=== PATIENT | male | born 1980 | race African-American/Black ===

== ENCOUNTER 2019-11-15 04:36 | Emergency (ER) | payer SELFPAY ==
[2019-11-15] MEDS ORDERED: Lidocaine 1% (PF) 30 ML VIAL ONE (05:09)
[2019-11-15] MEDS ORDERED: PHENYLEPHRINE-NS 100 MCG/ML 10 ML SYRINGE FS SCH (05:30)
== END 2019-11-15 06:18 | disposition home or self-care (01) ==
LOC: ERS 04:36
DX: N48.30 Priapism, unspecified (principal); F41.9 Anxiety disorder, unspecified; Z87.891 Personal history of nicotine dependence; Z79.899 Other long term (current) drug therapy
CPT/HCPCS: 99283; J2001

== ENCOUNTER 2019-12-02 18:25 | Emergency (ER) | payer SELFPAY ==
[~2019-12-02 18:25] MED LIST: Iopamidol 370 76% 100 ML VIAL ONE
[2019-12-02] MEDS ORDERED: Acetaminophen 500 MG TAB ONE (18:49)
[2019-12-02 19:15] LABS: #Basophils 0.1 thou/uL (0.0-0.2); #Eosinphils 0.1 thou/uL (0.0-0.7); #Lymphocytes 1.9 thou/uL (1.20-3.40); #Neutrophils 14.5 thou/uL (1.40-6.50); %Basophils 0.4 % (0.0-1.0); %Eosinophils 0.7 % (0.0-10.0); %Lymphocytes 10.3 % (21.0-51.0); %Monocytes 10.8 % (0.0-10.0); %Neutrophils 77.7 % (42.0-75.0); Hemoglobin 13.4 g/dL (14.0-18.0); Mean Corpuscular Hemoglobin 32.5 pg (27.0-31.0); Mean Corpuscular Volume 95.7 fL (78.0-98.0); Mean Platelet Volume 6.2 fL (7.4-10.4); Platelet Count 626 thou/uL (130-400); Red Blood Cell (RBC) Count 4.11 mill/uL (4.70-6.10); White Blood Cell (WBC) Count 18.7 thou/uL (4.8-10.8)
[2019-12-02 19:20] LABS: INR-International Normal Ratio 1.1; PTT 28.7 sec (22.9-36.1)
[2019-12-02 19:36] LABS: ALT (SGPT) 27 U/L (8-55); AST (SGOT) 15 U/L (5-34); Albumin 3.5 g/dL (3.5-5.0); Alkaline Phosphatase 81 U/L (40-110); Anion Gap 12 mmol/L (10-20); BUN (Urea Nitrogen) 8 mg/dL (8.9-20.6); Bilirubin, Total 0.5 mg/dL (0.2-1.2); Calc. Creatinine Clearance 0 mL/min (70-130); Calcium 9.3 mg/dL (7.8-10.44); Carbon Dioxide 26 mmol/L (22-29); Chloride 101 mmol/L (98-107); Estimated GFR-MDRD Greater than 90; Globulin 4.9 g/dL (2.4-3.5); Glucose 140 mg/dL (70-105); Potassium 3.5 mmol/L (3.5-5.1); Protein, Total 8.4 g/dL (6.0-8.3); Sodium 135 mmol/L (136-145)
--- NOTE | 2019-12-02 19:40 | CT ---
EXAM: CT Pelvis W Con DATE: 12/02/2019 12:00 AM INDICATION: Penile pain and priapism COMPARISON: None. FINDING: There is prominent soft tissue swelling involving the dorsal shaft of the erect penis. Ther e are fat-containing bilateral inguinal hernias. Visualized intrapelvic contents reveal no acute abnormality. No enlarged lymph nodes are evident. No acute osseous abnormality is demonstrated. IMPRESSION:Prominent soft tissue swelling involving the dorsal shaft of an erect penis
--- NOTE | 2019-12-02 19:41 | RAD ---
Chest AP view INDICATION: Fever and priapism COMPARISON: None FINDINGS: Lungs: The lungs are clear Cardiac silhouette: The cardiomediastinal silhouette appears within normal limits. Pulmonary vasculature: Normal Pleural spaces: No pleural effusion or pneumothorax is demonstrated. Upper abdomen: No abnormality seen. Osseous structures: No acute osseous abnormality. Additional findings: None. IMPRESSION: No acute cardiopulmonary abnormality.
[2019-12-02 21:18] LABS: Bilirubin Negative (Negative); Blood, Urine Negative (Negative); Clarity Clear (Clear); Glucose, Urine (Dipstick) Normal (Negative); Ketone, Urine Negative (Negative); Leukocyte Negative Leu/uL (Negative); Nitrite Negative (Negative); Protein, Urine (Dipstick) 10 mg/dL (Neg-Trace); Urobilinogen Normal mg/dL (Less than 2); pH, Urine 5.5 (5.0-9.0)
[2019-12-02 21:20] LABS: Specific Gravity, Urine 1.061 (1.002-1.036)
== END 2019-12-02 21:55 | disposition home or self-care (01) ==
LOC: ERS 18:25
DX: S30.21XA Contusion of penis, initial encounter (principal); D72.829 Elevated white blood cell count, unspecified; F41.9 Anxiety disorder, unspecified; Z87.891 Personal history of nicotine dependence; Z79.899 Other long term (current) drug therapy; X58.XXXA Exposure to other specified factors, initial encounter
CPT/HCPCS: 36415; 71045; 72193; 80053; 81003; 83605; 85025; 85610; 85730; 86850; 86900; 86901; 87040; 96360; 96361; Q9967

== ENCOUNTER 2019-12-05 08:49 | Inpatient (IN) | payer MEDICARE, SELFPAY ==
[2019-12-05 09:49] LABS: Hemoglobin 13.9 g/dL (14.0-18.0); Mean Corpuscular HGB CONC 35.7 g/dL (32.0-36.0); Mean Corpuscular Hemoglobin 34.2 pg (27.0-31.0); Mean Corpuscular Volume 95.7 fL (78.0-98.0); Mean Platelet Volume 6.1 fL (7.4-10.4); Platelet Count 669 thou/uL (130-400); RBC Distribution Width 12.1 % (11.5-14.5); Red Blood Cell (RBC) Count 4.07 mill/uL (4.70-6.10); White Blood Cell (WBC) Count 15.7 thou/uL (4.8-10.8)
[2019-12-05 10:03] LABS: ALT (SGPT) 36 U/L (8-55); AST (SGOT) 22 U/L (5-34); Acetaminophen Less than 6.0 mcg/mL (10.0-30.0); Albumin 3.5 g/dL (3.5-5.0); Alcohol Less than 10 mg/dL (Less than 10); Alkaline Phosphatase 90 U/L (40-110); Anion Gap 14 mmol/L (10-20); BUN (Urea Nitrogen) 11 mg/dL (8.9-20.6); Bilirubin, Total 0.3 mg/dL (0.2-1.2); CK (CPK) 407 U/L (30-200); Calc. Creatinine Clearance 0 mL/min (70-130); Calcium 9.4 mg/dL (7.8-10.44); Carbon Dioxide 25 mmol/L (22-29); Chloride 104 mmol/L (98-107); Estimated GFR-MDRD Greater than 90; Globulin 5.1 g/dL (2.4-3.5); Glucose 105 mg/dL (70-105); Lipase 10 U/L (8-78); Potassium 4.1 mmol/L (3.5-5.1); Protein, Total 8.6 g/dL (6.0-8.3); Salicylate Less than 8.0 mg/dL (15.0-30.0); Sodium 139 mmol/L (136-145)
[2019-12-05 10:11] LABS: Eosinophils 2 % (0-10); Lymphocytes 14 % (21-51); MDiff Complete? YES; Monocytes 10 % (0-10); Neutrophil 72 % (42-75); Platelet Morphology Comment Appears Increased; Reactive Lymphocytes 1 % (0-10)
[2019-12-05] MEDS ORDERED: Cefepime 2 GM VIAL ONE (10:15)
[2019-12-05] MEDS ORDERED: Vancomycin 1 GM/200 ML BAG ONE (10:15)
[2019-12-05] MEDS ORDERED: Fentanyl 100 MCG/2 ML VIAL ONE (10:51)
[2019-12-05] MEDS ORDERED: Ondansetron ODT 4 MG TAB PO PRN (11:13)
[2019-12-05 11:38] LABS: Bilirubin Negative (Negative); Blood, Urine Negative (Negative); Clarity Clear (Clear); Glucose, Urine (Dipstick) Normal (Negative); Ketone, Urine Negative (Negative); Leukocyte Negative Leu/uL (Negative); Nitrite Negative (Negative); Protein, Urine (Dipstick) Negative (Neg-Trace); Specific Gravity, Urine 1.019 (1.002-1.036); Urobilinogen 6 mg/dL (Less than 2); pH, Urine 6.5 (5.0-9.0)
[2019-12-05 12:00] LABS: Amphetamine Not Detected (NotDetected); Barbiturates Screen Not Detected (NotDetected); Benzodiazepine Screen Not Detected (NotDetected); Cocaine Metabolite Screen Not Detected (NotDetected); Medtox Control Line Valid? VALID (VALID); Medtox Reader # READER 1; Methadone Not Detected (NotDetected); Methamphetamine Not Detected (NotDetected); Opiate Screen Not Detected (NotDetected); Oxycodone Screen Not Detected (NotDetected); Phencyclidine (PCP) Not Detected (NotDetected); THC/Cannabinoid Screen Not Detected (NotDetected); Tricyclic Screen Not Detected (NotDetected)
[2019-12-05] MEDS: traMADol HCl 50 MG TAB PO PRN ×2 (13:56→21:14)
[2019-12-05] MEDS ORDERED: Sodium Chloride 0.9% 1,000 ML IV SCH (14:00)
[2019-12-05 14:34] VITALS: BMI 30.8
--- NOTE | 2019-12-05 15:37 | CON ---
DATE OF CONSULTATION: 12/05/2019 REASON FOR CONSULTATION: 1. Priapism. 2. Bleeding from the right corporal body. HISTORY OF PRESENT ILLNESS: Mr. Ignacio Morales, (also listed as Obi on [facility] system) is a 39-year-old male, who is disabled secondary to schizophrenia. He is followed by [facility] for that. He has very poor recall of the timeline of events and does not know who his physician or other caretakers are. The patient is oriented to self and place at the present time. Mr. Morales reports that he has had several priapism events in the past. He did rule out previously as a sickle cell patient at [facility], was seen on 11/18/[address] Ortega for priapism event. The patient was evaluated at that time. He had a corporal aspiration and had over 24 hours worth of priapism at that point, he had very thick dark colored blood at that time. Arterial blood gas at that time suggested this was a venous type obstruction resulting in priapism. The patient presented to the [facility] Emergency Department today and was evaluated by Dr. Christiano Marroquin, who notes an open area on the right corporal shaft, which is the area of the patient's previous corporal aspiration, which was performed initially with a 14-gauge Angiocath. The blood gas obtained at that point in time showed venous constituents as opposed to arterial type priapism. The patient's corporal bodies would not completely go to flaccidity due to the long duration and thick clot nature of the patient's priapism. The patient has been subsequently back to the [facility] Emergency Department here on [place] on two occasions, was evaluated previously on 12/03/2019 with an elevated white count and fever of 101.9. The patient left against medical advice at that point and was discharged on antibiotics. He returns to the emergency department today with a sore on the side of his penis in the site of the previous aspiration and there is bleeding from the opening. He has had ongoing issues with the priapism, which have been a continuous issue for him. As noted earlier, he is a very poor historian. Does not have any recall of the dates of the current events nor of past events involving priapism. The patient reports that he attempted masturbation to make the penis go down. This did not seem to help him. He developed bleeding from the right corporal shaft again and then he presented to the emergency department. PAST MEDICAL HISTORY: 1. Schizophrenia. 2. Recurrent episodes of priapism. PAST SURGICAL HISTORY: The patient admits to corporal irrigation, one performed on 11/18/2019, via the right corporal body. HOME MEDICATIONS: Risperdal. ALLERGIES: NO KNOWN DRUG ALLERGIES. SOCIAL HISTORY: The patient is unemployed secondary to schizophrenia. PHYSICAL EXAMINATION: VITAL SIGNS: Please see ER record. CONSTITUTIONAL: The patient does not appear to be grossly uncomfortable or in distress at the present time. The patient is evaluated supine in the emergency department [facility]. HEAD, EARS, EYES, NOSE, AND THROAT: Extraocular movements are intact. Sclerae are anicteric. Oropharynx is clear. There are no head deformities, no contusions. NECK: Supple. There is no bruit heard on auscultation. There is no JVD. PULMONARY: Lungs are clear to auscultation bilaterally. CARDIAC: There is a borderline tachycardic rate, it is regular. There are no murmurs heard. ABDOMEN: Soft and nontender. There is no evidence of skin lesions or other abnormalities. There is no crepitance. GENITOURINARY: Testes are found present bilaterally in the scrotum. They are smooth, anodular, nontender with no evidence of cellulitis or necrotizing fasciitis. There is no evidence of Dulce gangrene. Phallus is found in a Coban wrap with 4x[address] There is some blood staining on that. Close examination of corporal body finds relatively large defect measuring about possibly from having been picked that or some other type of injury. This could also be the result of an infection. There is no odor to the lesion to suggest Dulce gangrene. Possible, based on the presentation that this would be MRSA type lesion. I did not find any purulence in the wound at all. There is gross blood visible extruding from the wound site. The phallus itself is semierect, there is increase in erection and decreased during course of examination. The wound site was redressed with fresh 4x4 dressings and Coban. It was assessed to be adequate to decrease bleeding from the site without resulting in strangulation. LABORATORY STUDIES: White count is 15,700, hemoglobin 13.9, hematocrit 38.9, platelet count is 669. Electrolytes are completely within normal limits. Creatinine is 0.92. ASSESSMENT AND PLAN: This is an interesting story of a patient with schizophrenia and a recent corporal aspiration through a 14-gauge Angiocath. The patient has had priapism event going on for several days. He did present once since that on 12/03/2019, with what appeared to be an infection, elevated white count, and fever. He was sent home on antibiotic coverage. Returns here today with a white count which is reduced from what it was the other day, but with ongoing bleeding from the right aspect of the corporal body. He has fluctuating or stuttering type of priapism, apparently at present time, close examination of the patient finds he has a wound on the right corporal body. 1. Wound on the right corporal body, highly suspicious for MRSA type skin infection. Recommend appropriate coverage for that. This would be vancomycin intravenously and at appropriate interval either Bactrim plus rifampin or Zyvox as an outpatient. No cultures have been obtained. The patient is currently on antibiotic coverage. I am dubious that culture here will reveal presence of actual MRSA, although a swab may be useful. 2. Schizophrenia. The patient should be continued on his current schizophrenia medications. 3. Tachycardia and febrile presentation consistent with at least a SIRS type syndrome. Appropriate in-hospital hydration and fluid management as well as antipyretics indicated. Job ID: [id number]
--- NOTE | 2019-12-05 15:46 | HP ---
CHIEF COMPLAINT: Penile bleeding. HISTORY OF PRESENT ILLNESS: A 39-year-old male with a history of schizophrenia, presenting with bleeding secondary to priapism. He had several episodes of penile bleed in the past. Recently, on November 14, he had an episode and followed with urologist, Dr. Ortega. Last event was 3 days ago, and roughly about 60 mL of blood drained when he visited ER. The patient came again today because of the ongoing issues, has semi erectile penis and erythema surrounding the skin. He has some dark red blood on the left shaft side. He mentioned that he did masturbate to relieve, but however, the symptoms did not resolve. In the ER, they did a CT scan on the three days prior, and it showed prominent soft tissue swelling involving the dorsal shaft of the erectile penis. Today, his UA looked clear. Chest x-ray clear. ER physician contacted Dr. Delta Fernandez, urologist, because of uncertainty on the nature of the infection. Dr. Fernandez would likely see him. Patient will be brought in for a brief IV antibiotics course and for further urology workup. REVIEW OF SYSTEMS: Denies any recent productive cough or sick exposures. Denies chest pain. Denies dysuria. No lower quadrant discomfort. Denies any burning sensation when he voids. The rest of the 13-point review of systems reviewed, and others are negative. ALLERGIES: HE HAS NO KNOWN DRUG ALLERGY. PAST MEDICAL HISTORY: Schizophrenia. He takes risperidone 4 mg daily. HOME MEDICATIONS: Risperidone 4 mg daily. SOCIAL HISTORY: He smokes a pack a day. No alcohol use. FAMILY HISTORY: The parents' family history asked and they are negative. PHYSICAL EXAMINATION: VITAL SIGNS: Temperature 98.4, pulse 94, blood pressure 132/82, saturating 98% on room air. GENERAL: The patient is alert, oriented, not in any acute distress. CARDIOVASCULAR: Regular rate and rhythm without murmurs, rubs, or gallops. LUNGS: Clear to auscultation bilaterally without wheezing, rales, or rhonchi. ABDOMEN: Soft, nontender, and nondistended. Good bowel sounds. EXTREMITIES: Without pitting edema. He has a semi-erectile penis and mild erythema surrounding the shaft, but no flocculence or other abnormality noted. LABORATORY DATA: His UA is clear. Urine drug screen is negative. Chemistry panel also negative. CBC with WBC of 15.7, hemoglobin 13.9, and platelets 669. Chest x-ray negative. UA is negative. IMPRESSION AND PLAN: 1. This is a 39-year-old male presenting with acute episode of penile bleed with recurrent history. The patient is not presenting with sepsis like picture. He has only elevated white count and penile bleed. He is normotensive, and his oxygen saturations are good, and pulse is 94. No tachypnea. There is some mild cellulitis surrounding the penile shaft. We will cover with empiric antibiotic preceded by blood culture. Because of the patient's medical condition, it is unsure that this is just a benign priapism related bleed versus any underlying infectious etiology. We will sort that out. Dr. Fernandez, urologist, will likely see him today. 2. The patient also has mild rhabdomyolysis, probably reflective of acute stress. We will hydrate him and then follow with a CK level. 3. Schizophrenia. Continue with his risperidone. 4. Tobacco abuse. Counseling when able. Nicotine patch daily. 5. History of marijuana abuse as above. 6. Full code. Job ID: [id number] [facility]
[2019-12-05] MEDS: Vancomycin HCl 1.25 GM in Sodium Chloride 0.9% 250 ML 250 ML IVPB SCH (18:11)
[2019-12-05] MEDS: Cefepime 1 GM in Sodium Chloride 0.9% 100 ML IVPB SCH (21:05)
[2019-12-05] MEDS: Acetaminophen 325 MG TAB PO PRN (21:13)
[2019-12-05] MEDS ORDERED: Nicotine 14 MG PATCH TD PRN (22:05)
[2019-12-06] MEDS: Vancomycin HCl 1.25 GM in Sodium Chloride 0.9% 250 ML 250 ML IVPB SCH ×3 (01:50→17:27)
[2019-12-06] MEDS: Acetaminophen 325 MG TAB PO PRN (02:51)
[2019-12-06] MEDS: traMADol HCl 50 MG TAB PO PRN ×2 (02:51→17:26)
[2019-12-06 05:33] LABS: #Eosinphils 0.4 thou/uL (0.0-0.7); #Lymphocytes 2.2 thou/uL (1.20-3.40); #Monocytes 1.4 thou/uL (0.11-0.59); #Neutrophils 7.2 thou/uL (1.40-6.50); %Basophils 0.4 % (0.0-1.0); %Eosinophils 3.6 % (0.0-10.0); %Lymphocytes 19.9 % (21.0-51.0); %Monocytes 12.1 % (0.0-10.0); %Neutrophils 64.1 % (42.0-75.0); Hemoglobin 11.4 g/dL (14.0-18.0); Mean Corpuscular Hemoglobin 32.9 pg (27.0-31.0); Mean Corpuscular Volume 96.7 fL (78.0-98.0); Platelet Count 565 thou/uL (130-400); Red Blood Cell (RBC) Count 3.47 mill/uL (4.70-6.10); White Blood Cell (WBC) Count 11.2 thou/uL (4.8-10.8)
[2019-12-06 05:50] LABS: Anion Gap 9 mmol/L (10-20); BUN (Urea Nitrogen) 10 mg/dL (8.9-20.6); CK (CPK) 362 U/L (30-200); Calc. Creatinine Clearance 153 mL/min (70-130); Calcium 8.7 mg/dL (7.8-10.44); Carbon Dioxide 27 mmol/L (22-29); Chloride 107 mmol/L (98-107); Estimated GFR-MDRD Greater than 90; Glucose 98 mg/dL (70-105); Potassium 4.2 mmol/L (3.5-5.1); Sodium 139 mmol/L (136-145)
[2019-12-06] MEDS: risperiDONE 1 MG TAB PO SCH (08:11)
[2019-12-06] MEDS: Cefepime 1 GM in Sodium Chloride 0.9% 100 ML IVPB SCH ×2 (09:10→21:22)
--- NOTE | 2019-12-06 14:40 | PDOC.HOSPP ---
- Subjective Encounter Date: 12/06/19 Encounter Time: 11:00 Subjective: seen this am, he is doing well, penile area in dressing, says he did not notice any bleed. hgb at 11.4 and dropped from 13.9 of y'day. blood culx negative. no swab done on the penile shaft and the utility of that mehdi may be less. but still we do as we covered already for skin infections w.. vanc. plan for bactrim + rifambin x 14 days, if mehdi cont'd to be neg and he is afebrile. wbcs trending down. - Objective Vital Signs & Weight: Vital Signs (12 hours) Temp Pulse Resp BP BP Pulse Ox 12/06/19 11:44 98.2 F 89 18 114/69 97 12/06/19 08:00 97.9 F 86 18 114/73 96 12/06/19 07:23 97.9 F 86 18 114/73 96 12/06/19 04:15 97.9 F 80 18 111/69 97 Weight Weight 202 lb 13.204 oz I&O: 12/05/19 12/06/19 12/07/19 06:59 06:59 06:59 Intake Total 4460 Balance 4460 Result Diagrams: 12/06/19 05:16 12/06/19 05:16 Hospitalist ROS - Medication Medications: Active Medications Generic Name Dose Route Start Last Admin Trade Name Freq PRN Reason Stop Dose Admin Acetaminophen 650 mg 12/05/19 11:13 12/06/19 02:51 Tylenol PO 650 mg Q4H PRN Administration Headache/Fever/Mild Pain (1-3) Cefepime HCl 1 gm/ Sodium 100 mls @ 200 mls/hr 12/05/19 22:00 12/06/19 09:10 Chloride IVPB 100 mls 1000,2200 MARILU Administration Vancomycin HCl 1.25 gm/ Sodium 250 mls @ 166.667 mls/hr 12/05/19 18:00 09:52 Chloride IVPB 250 mls 0200,1000,1800 MARILU Administration Risperidone 4 mg 12/06/19 09:00 12/06/19 08:11 Risperidone PO 4 mg DAILY MARILU Administration Tramadol HCl 50 mg 12/05/19 11:15 12/06/19 02:51 Ultram PO 50 mg Q6H PRN Administration Severe Pain (6-10) - Exam General Appearance: NAD, awake alert Eye: PERRL ENT: normocephalic atraumatic Neck: supple Heart: RRR Respiratory: CTAB, normal chest expansion Gastrointestinal: soft, normal bowel sounds Skin - other findings: penile shaft in dressing, semi-erectile Neurological: no focal deficits Hosp A/P - Plan Penile bleed mild rhabdomyolysis Acute blood loss anemia, and not require transfusion SIRS d/t penile bleed leukocytosis as above - hgb at 11.4 and dropped from 13.9 of y'day. - could be dilutional, as he is getting IVF for rhabdo. blood culx negative. no swab done on the penile shaft and the utility of that mehdi may be less. but still we do as we covered already for skin infections w.. vanc. plan for bactrim + rifambin x 14 days, if mehdi cont'd to be neg and he is afebrile. wbcs trending down. -CK - mild decrease. plan for dc home in am, if ok w.. urologist. Dr. Fernandez's note reviewed.
[2019-12-06] MEDS ORDERED: Bacitracin 1 PK TOP PRN (19:09)
--- NOTE | 2019-12-07 00:42 | CON ---
DATE OF CONSULTATION: 12/06/2019 REASON FOR CONSULTATION: Bleeding from right aspect of the corporal body, previous aspiration site. BRIEF HISTORY: Mr. Ignacio Morales is a very pleasant, but schizophrenic 39-year-old male with a history of priapism, and underwent a corporal irrigation about a week ago. The patient had a scab in the area, and this scab has fallen off and left an apparent abscess site. He has presented to the [facility] on two occasions with fever and elevated white count. He was admitted on this admission due to that for antibiotic coverage. Based on progress overnight with improvement of his white blood cell count, and his fever is now quiescent, the patient seems to be feeling a little better today. PHYSICAL EXAMINATION: VITAL SIGNS: Temperature 98.2, pulse 83, respirations 18, O2 saturation on room air is 99%, and blood pressure is 118/74. GENERAL: This is a pleasant, athletic built male, in no distress. HEAD, EYES, EARS, NOSE, AND THROAT: Extraocular movements are intact. Sclerae anicteric. Oropharynx is clear. NECK: Supple. LUNGS: Clear to auscultation bilaterally. CARDIAC: Regular rate and rhythm without murmur, rub, or gallop. ABDOMEN: Soft and nontender. GENITOURINARY: The patient's phallus is dressed on the right aspect of the patient's penile shaft. There is a linear lesion measuring approximately 1 cm in overall length x 0.5 cm in width. This was ulcerated and produces blood. This is markedly tender as well. LABORATORY FINDINGS: Blood cultures remain pending. A swab of the patient's site was obtained today, but of course, the patient has been on antibiotics for several days from prior to the site being swabbed. The patient's creatinine is 0.85, improved from 0.92 yesterday. The hematologic profile shows decrease in white count from 15.7 yesterday to 11.2 today. Neutrophil count today is 7.2. ASSESSMENT AND PLAN: Right penile ulcer, highly suspicious for methicillin-resistant Staphylococcus aureus infection following aspiration. The patient is currently managed on multiple antibiotics due to his elevated white count. Discussed with the patient evaluation and treatment, the operative suite could be indicated. At the present time, there is no purulence or pus accumulating. There is no formal abscess to drain. At present time, there is just some oozing from the site, which was improved from yesterday's examination. At the present time, I recommended continuing with a 4x4 dressing and Coban on the site. This does not adequately resolve. Irrigation, exploration of the site, possible ligation of blood vessels in the area may be indicated. Over 35 minutes of consultation, evaluation, and assessment time was spent in assessment of this patient today. Job ID: [id number]
[2019-12-07] MEDS: traMADol HCl 50 MG TAB PO PRN ×2 (00:52→19:27)
[2019-12-07] MEDS: Acetaminophen 325 MG TAB PO PRN ×2 (00:54→19:27)
[2019-12-07] MEDS: Vancomycin HCl 1.25 GM in Sodium Chloride 0.9% 250 ML 250 ML IVPB SCH ×3 (01:02→18:31)
[2019-12-07] MEDS: Cefepime 1 GM in Sodium Chloride 0.9% 100 ML IVPB SCH ×2 (10:26→22:57)
[2019-12-07] MEDS: risperiDONE 1 MG TAB PO SCH (10:27)
--- NOTE | 2019-12-07 14:13 | PDOC.HOSPP ---
- Subjective Encounter Date: 12/07/19 Encounter Time: 11:40 Subjective: pt doing well, hgb at 11.4, no further penile bleed. Gram stain of swab showed moderate wbcs, many epi cells. - Objective Vital Signs & Weight: Vital Signs (12 hours) Temp Pulse Resp BP Pulse Ox 12/07/19 11:25 97.6 F 76 18 126/79 97 12/07/19 07:40 98.2 F 95 18 119/74 98 12/07/19 03:03 98.4 F 83 16 129/87 97 Weight Weight 202 lb 13.204 oz I&O: 12/06/19 12/07/19 12/08/19 06:59 06:59 06:59 Intake Total 4460 830 Balance 4460 830 Result Diagrams: 12/06/19 05:16 12/06/19 05:16 Hospitalist ROS - Medication Medications: Active Medications Generic Name Dose Route Start Last Admin Trade Name Freq PRN Reason Stop Dose Admin Acetaminophen 650 mg 12/05/19 11:13 12/07/19 00:54 Tylenol PO 650 mg Q4H PRN Administration Headache/Fever/Mild Pain (1-3) Bacitracin 0 pk 12/06/19 19:09 12/07/19 00:54 Bacitracin TOP 1 pk ASDIR PRN Administration Topical Irritations Cefepime HCl 1 gm/ Sodium 100 mls @ 200 mls/hr 12/05/19 22:00 12/07/19 10:26 Chloride IVPB 100 mls 1000,2200 MARILU Administration Vancomycin HCl 1.25 gm/ Sodium 250 mls @ 166.667 mls/hr 12/05/19 18:00 11:17 Chloride IVPB 250 mls 0200,1000,1800 MARILU Administration Risperidone 4 mg 12/06/19 09:00 12/07/19 10:27 Risperidone PO 4 mg DAILY MARILU Administration Tramadol HCl 50 mg 12/05/19 11:15 12/07/19 00:52 Ultram PO 50 mg Q6H PRN Administration Severe Pain (6-10) - Exam General Appearance: NAD, awake alert Eye: PERRL ENT: normocephalic atraumatic Neck: supple Heart: RRR Respiratory: CTAB, normal chest expansion Gastrointestinal: soft, normal bowel sounds Neurological: no focal deficits Hosp A/P - Plan Penile bleed mild rhabdomyolysis Penile infection Acute blood loss anemia, and not require transfusion SIRS d/t penile bleed leukocytosis as above - hgb at 11.4 and dropped from 13.9 of y'day. - could be dilutional, as he is getting IVF for rhabdo. blood culx negative. no swab done on the penile shaft and the utility of that mehdi may be less. but still we do as we covered already for skin infections w.. vanc. plan for bactrim + rifambin x 14 days, if mehdi cont'd to be neg and he is afebrile. wbcs trending down. -CK - mild decrease. plan for dc home in am, if ok w.. urologist. Dr. Fernandez's note reviewed. 13th - mehdi neg so far - Gram stain of swab showed moderate wbcs, many epi cells. - cw current abx regimen x 5 days total- if stable, then change to bactrim + rifambin x 14 days. urologist plan for ligation of the blood vessels, if any further episodes of bleed -monitor for now hgb at 11.4.
--- NOTE | 2019-12-07 19:54 | CON ---
DATE OF CONSULTATION: 12/07/2019 REASON FOR CONSULTATION: Right-sided corporal body bleeding, erosion, and elevated white count. BRIEF HISTORY: Mr. Ignacio Morales is a very pleasant 39-year-old male with a history of priapism and recent corporal irrigation. The patient has presented to the emergency room on two occasions since his corporal irrigation and has had a fever and elevated white count due to that. The patient has been placed on broad-spectrum antibiotics including vancomycin and is improving. He reports decreasing pain. There is still a fair amount of bleeding from his corporal body on the right. Other than this, the patient has no major complaints today. PHYSICAL EXAMINATION: VITAL SIGNS: Temperature is 99.0, pulse is 107, respirations 18, O2 saturation on room air is 99%, and blood pressure is 126/81. HEAD, EYES, EARS, NOSE, AND THROAT: Extraocular movements are intact. Sclerae are anicteric. Oropharynx is clear. NECK: Supple. LUNGS: Clear to auscultation bilaterally. CARDIAC: Regular rate and rhythm without murmur, rub, or gallop. ABDOMEN: Soft, nontender, nondistended. GENITOURINARY: Testes are without lesion. Phallus is examined with removal of a Coban type dressing with 4x4s. There is some blood present on the right side of the patient's penile shaft approximately 1/3 up from the base. This lesion measures approximately 1 cm in diameter. There are multiple small bleeding blood vessels present. The patient and I discussed his treatment options. At this point, he is on adequate broad-spectrum antibiotics and would be appropriate for OR evaluation in the morning if so desired. Options would be using hemostatic agents versus electrocautery and suturing. The patient's corporal body integrity is not well evaluated at bedside. The patient does not have active priapism at the time of the evaluation. We discussed other options for that. The patient could be treated with hormone suppressive agent transiently to allow him to heal adequately from the procedure. At the present time, I believe we will continue on broad-spectrum antibiotics. Dr. Ortega will be seeing him on 12/08/2019 and was unavoidably delayed due to surgery today. Over 35 minutes of consultation, evaluation, coordination of care time spent in evaluation. Job ID: [id number]
[2019-12-08] MEDS: Vancomycin HCl 1.25 GM in Sodium Chloride 0.9% 250 ML 250 ML IVPB SCH ×2 (02:27→09:57)
[2019-12-08] MEDS: risperiDONE 1 MG TAB PO SCH (09:11)
[2019-12-08] MEDS ORDERED: Silver Nitrate Application 1 EACH TOP SCH ×2 (09:15→09:45)
[2019-12-08 09:28] LABS: Vancomycin, Trough 20.2 ug/mL
[2019-12-08] MEDS: Acetaminophen 325 MG TAB PO PRN (10:04)
[2019-12-08] MEDS: traMADol HCl 50 MG TAB PO PRN ×2 (10:04→20:15)
[2019-12-08] MEDS: Cefepime 1 GM in Sodium Chloride 0.9% 100 ML IVPB SCH ×2 (11:51→16:27)
--- NOTE | 2019-12-08 14:24 | PDOC.HOSPP ---
- Subjective Encounter Date: 12/08/19 Encounter Time: 10:10 Subjective: seen this am, early am, urol't ok for dc. however, later with wound care following, dressing done, it appears he is re-bleeding from penile site. - Objective Vital Signs & Weight: Vital Signs (12 hours) Temp Pulse Resp BP Pulse Ox 12/08/19 10:35 98.4 F 98 16 124/76 96 12/08/19 07:22 98.0 F 95 16 133/78 97 12/08/19 03:06 98.0 F 79 16 116/68 96 Weight Admit Weight 202 lb Weight 202 lb 13.204 oz I&O: 12/07/19 12/08/19 12/09/19 06:59 06:59 06:59 Intake Total 830 2300 Balance 830 2300 Result Diagrams: 12/06/19 05:16 12/06/19 05:16 Hospitalist ROS - Medication Medications: Active Medications Generic Name Dose Route Start Last Admin Trade Name Freq PRN Reason Stop Dose Admin Acetaminophen 650 mg 12/05/19 11:13 12/08/19 10:04 Tylenol PO 650 mg Q4H PRN Administration Headache/Fever/Mild Pain (1-3) Bacitracin 0 pk 12/06/19 19:09 12/07/19 00:54 Bacitracin TOP 1 pk ASDIR PRN Administration Topical Irritations Cefepime HCl 1 gm/ Sodium 100 mls @ 200 mls/hr 12/05/19 22:00 12/08/19 11:51 Chloride IVPB Not Given 1000,2200 MARILU Risperidone 4 mg 12/06/19 09:00 12/08/19 09:11 Risperidone PO 4 mg DAILY MARILU Administration Tramadol HCl 50 mg 12/05/19 11:15 12/08/19 10:04 Ultram PO 50 mg Q6H PRN Administration Severe Pain (6-10) - Exam General Appearance: NAD, awake alert Eye: PERRL ENT: normocephalic atraumatic Neck: supple Heart: RRR Respiratory: CTAB, normal chest expansion Gastrointestinal: soft, normal bowel sounds Skin - other findings: penile bleed, silver NO3 dressing Neurological: no focal deficits Hosp A/P - Plan Penile bleed mild rhabdomyolysis Penile infection Acute blood loss anemia, and not require transfusion SIRS d/t penile bleed leukocytosis as above - hgb at 11.4 and dropped from 13.9 of y'day. - could be dilutional, as he is getting IVF for rhabdo. blood culx negative. no swab done on the penile shaft and the utility of that mehdi may be less. but still we do as we covered already for skin infections w.. vanc. plan for bactrim + rifambin x 14 days, if mehdi cont'd to be neg and he is afebrile. wbcs trending down. -CK - mild decrease. plan for dc home in am, if ok w.. urologist. Dr. Fernandez's note reviewed. 13th - mehdi neg so far - Gram stain of swab showed moderate wbcs, many epi cells. - cw current abx regimen x 5 days total- if stable, then change to bactrim + rifambin x 14 days. urologist plan for ligation of the blood vessels, if any further episodes of bleed -monitor for now hgb at 11.4. dc orders and abx script done. however, later with wound care following, dressing done, it appears he is re- bleeding from penile site. hold dc order and talk to urologist.
[2019-12-08] MEDS: Vancomycin 1 GM in Premix Bag 1 BAG IVPB SCH (17:18)
[2019-12-09] MEDS: Vancomycin 1 GM in Premix Bag 1 BAG IVPB SCH ×2 (02:33→10:14)
[2019-12-09] MEDS: Cefepime 1 GM in Sodium Chloride 0.9% 100 ML IVPB SCH (04:15)
--- NOTE | 2019-12-09 07:32 | PRG ---
DATE OF SERVICE: 12/08/2019 SUBJECTIVE: Mr. Morales is feeling better. His pain is minimal. He has had minimal bleeding from the penile wound. He has been afebrile. No other complaints. OBJECTIVE: VITAL SIGNS: Temperature 98.3, pulse 85, respirations 16, oxygen saturation 97% on room air, blood pressure 127/74. GENERAL: He is awake and alert, in no apparent distress. CARDIOVASCULAR: Regular rate and rhythm. PULMONARY: Breathing unlabored. ABDOMEN: Soft, nontender/nondistended. No masses or organomegaly. No suprapubic tenderness to palpation. GENITOURINARY: Flaccid penis with 2 cm right lateral midshaft wound without surrounding erythema or exudate. No purulent drainage. No induration. No fluctuance. There is a small area on the edge of the wound, which has some minor venous bleeding. EXTREMITIES: Warm and well perfused. No edema. LABORATORY DATA: From 12/06/2019, sodium 139, potassium 4.2, chloride 107, bicarb 27, BUN 10, creatinine 0.85. Creatine kinase 362. White blood cell count 11.2, hemoglobin 11.4, hematocrit 33.6, and platelets 565. Micro on 12/06/2019; Gram stain shows few gram-positive rods. Blood culture on 12/05/2019 is negative. ASSESSMENT: A 39-year-old male with chronic priapism, now with open penile wound, likely secondary to abscess formation and subsequent drainage, also has signs of rhabdomyolysis. PLAN: I reviewed the patient's clinical course with him. The patient has a chronic ischemic priapism. Upon initial presentation, he had the interaction for one week. This was irrigated by ER physician. He subsequently had aspiration and irrigation in the office by me. The patient declined shunt, penile prosthesis, or any additional therapy. He was subsequently sexually active with his girlfriend and then developed a likely penile abscess, which drained and created a chronic right lateral penile wound. Wound Care to see the patient today. Apply silver nitrate to the edge of the wound, re-wrap in a light pressure dressing. Cultures are currently negative, although no wound culture was obtained. Continue antibiotics for now and then discharge home on antibiotics to cover skin laura. The patient can follow up with Urology as an outpatient. If he continues to have persistent bleeding from the edge of the wound, this can be managed as an outpatient in the clinic with close followup. Job ID: [id number]
[2019-12-09 10:06] LABS: #Basophils 0.1 thou/uL (0.0-0.2); #Eosinphils 0.6 thou/uL (0.0-0.7); #Lymphocytes 1.9 thou/uL (1.20-3.40); #Monocytes 1.4 thou/uL (0.11-0.59); #Neutrophils 12.5 thou/uL (1.40-6.50); %Basophils 0.4 % (0.0-1.0); %Eosinophils 3.7 % (0.0-10.0); %Lymphocytes 11.5 % (21.0-51.0); %Monocytes 8.4 % (0.0-10.0); Hemoglobin 13.8 g/dL (14.0-18.0); Mean Corpuscular HGB CONC 32.6 g/dL (32.0-36.0); Mean Corpuscular Hemoglobin 31.8 pg (27.0-31.0); Mean Corpuscular Volume 97.5 fL (78.0-98.0); Mean Platelet Volume 5.7 fL (7.4-10.4); Platelet Count 711 thou/uL (130-400); RBC Distribution Width 12.4 % (11.5-14.5); Red Blood Cell (RBC) Count 4.36 mill/uL (4.70-6.10); White Blood Cell (WBC) Count 16.5 thou/uL (4.8-10.8)
[2019-12-09 10:10] LABS: Vancomycin, Trough 16.6 ug/mL
[2019-12-09] MEDS: risperiDONE 1 MG TAB PO SCH (10:14)
[2019-12-09 11:40] VITALS: BP 136/80; TEMP 98.3
--- NOTE | 2019-12-09 17:17 | DIS ---
DATE OF ADMISSION: 12/05/2019 DATE OF DISCHARGE: 12/09/2019 DISCHARGE DIAGNOSES: 1. Penile bleed. 2. Mild rhabdomyolysis. 3. Systemic inflammatory response syndrome. 4. Leukocytosis due to systemic inflammatory response syndrome. 5. Right penile ulcer highly suspicious for methicillin-resistant Staphylococcus aureus infection, status post aspiration of the extravasated fluid. DISCHARGE MEDICATIONS: 1. Rifampin 600 mg daily for 14 days. 2. Bactrim Double Strength twice a day for 14 days. 3. Resume his previous home medication of risperidone 4 mg daily. CONSULTS: Urology with Dr. Delta Fernandez and Dr. Doe Ortega. PHYSICAL EXAMINATION: VITAL SIGNS: On the day of discharge, temperature 98.3, pulse 85, blood pressure 116/76, saturating 95% on room air. GENERAL: The patient is alert, oriented, sitting and having his lunch. Discharge plan discussed. Wound Care has seen him. Change of his dressing in the penile area. No significant bleed. The patient is stable to be discharged home today. Blood cultures negative. Gram stain of the swab showed moderate WBCs and many epithelial cells. HOSPITAL COURSE: This is a 39-year-old male with a history of schizophrenia and history of priapism, underwent corporal irrigation a week ago, presented with bleed on the right aspect of the corporal body. He had a scab in that area that has fallen off and turned out to be abscess site. He had 2 episodes of fever and elevated white count. He was admitted for IV antibiotic coverage. He may have methicillin-resistant Staphylococcus aureus infection. Started on vancomycin and cefepime and transitioned to Rifampin and Bactrim for 2 weeks duration. Urology followed him. There is no purulence or pus accumulating. There is no formal abscess to drain. There is some oozing from the right corporal site, which has improved. He will continue with 4 x 4 dressing and Coban. If he had any further episode of bleeds from the site, irrigation and exploration of the site as well as possible ligation of the blood vessels were recommended by the urologist. He will follow up with Dr. Delta Fernandez in 1 to 2 weeks' time. DISCHARGE INSTRUCTIONS: Activity: As tolerated. Diet: Regular diet. Followup: With PCP in 1 week. Follow up with Dr. Delta Fernandez in 1 to 2 weeks per their clinic appointment. DISCHARGE TIME: Took over 35 minutes. Job ID: [id number] [facility]
== END 2019-12-09 13:32 | disposition home or self-care (01) | DRG 863 ==
LOC: ERS 08:49 → SURG B 13:19 → OBSVTOIN 13:19
PROVIDERS: ADMIT Internal Medicine; ATTEND Internal Medicine
DX: T81.40XA Infection following a procedure, unspecified, initial encounter (principal); N48.39 Other priapism; R65.10 Systemic inflammatory response syndrome (SIRS) of non-infectious origin without acute organ dysfunction; M62.82 Rhabdomyolysis; D62 Acute posthemorrhagic anemia; Y83.8 Other surgical procedures as the cause of abnormal reaction of the patient, or of later complication, without mention of misadventure at the time of the procedure; N48.22 Cellulitis of corpus cavernosum and penis; N48.21 Abscess of corpus cavernosum and penis; F20.9 Schizophrenia, unspecified; F41.9 Anxiety disorder, unspecified; B95.62 Methicillin resistant Staphylococcus aureus infection as the cause of diseases classified elsewhere; F17.210 Nicotine dependence, cigarettes, uncomplicated; Z79.899 Other long term (current) drug therapy
CPT/HCPCS: 36415; 80048; 80053; 80202; 80306; 80307; 81003; 82550; 83605; 83690; 85025; 87040; 87070; 96365; 96366; 96367; 96375; 96376; G0378; J0692; J3010; J3370; J3490; J7050